=== PATIENT | male | born 1980 | race Two or more races ===

== ENCOUNTER 2017-02-06 16:38 | Emergency (ER) | payer MEDICAID, OTHER ==
[~2017-02-06] VITALS: Ht 175.3 cm; Wt 108.9 kg
[2017-02-06 16:45] VITALS: BP 115/71
== END 2017-02-06 20:27 | disposition left against medical advice (07) ==
LOC: ER 16:38
DX: R53.1 Weakness (principal); R42 Dizziness and giddiness; Z53.21 Procedure and treatment not carried out due to patient leaving prior to being seen by health care provider